=== PATIENT | male | born 1960 | race Caucasian/White ===

== ENCOUNTER 2025-07-21 07:51 | Outpatient (CLI) | payer MEDICARE ==
[2025-07-21] MEDS ORDERED: Iopamidol 370 76% 100 ML VIAL ONE (13:08)
== END 2025-07-21 07:52 | disposition home or self-care (01) ==
LOC: CT 07:51
PROVIDERS: ATTEND Internal Medicine Hematology & Oncology
DX: K86.9 Disease of pancreas, unspecified (principal); D45 Polycythemia vera; R93.5 Abnormal findings on diagnostic imaging of other abdominal regions, including retroperitoneum; N28.1 Cyst of kidney, acquired; K40.90 Unilateral inguinal hernia, without obstruction or gangrene, not specified as recurrent; K57.30 Diverticulosis of large intestine without perforation or abscess without bleeding; M47.816 Spondylosis without myelopathy or radiculopathy, lumbar region; Z98.890 Other specified postprocedural states
CPT/HCPCS: 74178; Q9967